=== PATIENT | female | born 2005 | race Caucasian/White ===

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

== ENCOUNTER → 2023-01-13 | Outpatient (CLI) | payer OTHER, SELFPAY ==
--- NOTE | 2023-01-13 11:37 | US_ITS ---
STUDY: RENAL ULTRASOUND - COMPLETE REASON FOR EXAM: Female, 17 years old. POLYCYSTIC KD TECHNIQUE: Ultrasound evaluation of the kidneys was performed with real-time and static harris-scale imaging. COMPARISON: CT May 22, 2021 FINDINGS: RIGHT KIDNEY: Normal location of the right kidney, which is normal in size. The right kidney measures 11.4 cm. There is a normal cortex of the right kidney. The renal cortex measures 2.1 cm. There are multiple, greater than 5 cysts measuring up to 1.5 cm. There are multiple, greater than 3, echogenic foci suggesting stones measuring up to 0.4 cm. There is no right hydronephrosis. DISTAL RIGHT URETER: There is non-visualization of the distal right ureter. There is no demonstrated right ureterovesical junction calculus. There is no demonstrated right ureteral jet. LEFT KIDNEY: Normal location of the left kidney, which is normal in size. The left kidney measures 11.4 cm. There is a normal cortex of the left kidney. The renal cortex measures 1.4 cm. There are multiple, greater than 5 cysts measuring up to 1.7 cm. There are multiple, greater than 3, echogenic foci suggesting stones measuring up to 0.3 cm. There is no left hydronephrosis. DISTAL LEFT URETER: There is non-visualization of the distal left ureter. There is no demonstrated left ureterovesical junction calculus. There is no demonstrated left ureteral jet. BLADDER: The distended urinary bladder has a volume of 480 ml. There is a normal wall thickness of the distended urinary bladder. There is no demonstrated mass within the urinary bladder. There are no demonstrated bladder calculi. US/Kidney and Bladder IMPRESSION: Polycystic kidneys. Bilateral renal stones. No hydronephrosis. Electronically Signed: Celso Alberts MD at 23:54 EDT ,
== END | disposition home or self-care (01) ==
LOC: US 11:36
PROVIDERS: PCP Pediatrics; Referring Provider Internal Medicine Nephrology; Visit Provider Internal Medicine Nephrology
DX: Q61.2 Polycystic kidney, adult type (principal)
CPT/HCPCS: 76770

== ENCOUNTER → 2023-02-02 | Outpatient (CLI) | payer OTHER, SELFPAY ==
--- NOTE | 2023-02-02 11:57 | RAD_ITS ---
INDICATION: ACUTE BRONCHITIS EXAMINATION/TECHNIQUE: X-RAY - XR Chest 2 Views COMPARISON: 08/28/2022 FINDINGS: LINES/DEVICES: None. LUNGS: No consolidation. No pneumothorax. MEDIASTINUM: Unremarkable. CARDIAC SILHOUETTE: Not enlarged. BONES AND SOFT TISSUES: No acute abnormalities. RAD/Chest PA and Lateral IMPRESSION: No evidence of active intrathoracic disease. Electronically Signed: Danette Alex MD at 18:54 EDT ,
== END | disposition home or self-care (01) ==
LOC: MTRAD 11:56
PROVIDERS: PCP Family Medicine; Referring Provider Family Medicine; Visit Provider Family Medicine
DX: J20.9 Acute bronchitis, unspecified (principal)
CPT/HCPCS: 71046

== ENCOUNTER → 2023-02-16 | Outpatient (CLI) | payer OTHER, SELFPAY ==
[2023-02-16 13:38] LABS: Hematocrit 41.5 % (37-47); Hemoglobin 13.2 g/dL (12.0-15.0); Mean Corp Hgb Conc 31.8 g/dL (32-36); Mean Corpuscular Hgb 27.8 pg (27.0-32.0); Mean Corpuscular Volume 87.4 fL (81-99); Mean Platelet Vol. 12.2 fl (6.2-12.0); Platelet Count 382 K/mm3 (150-450); RBC Distribution Width SD 45.1 fl (35.1-43.9); Red Blood Count 4.75 M/mm3 (4.2-5.4); White Blood Count 4.6 K/mm3 (4.4-11.0)
[2023-02-16 14:00] LABS: ALB/GLOB Ratio 0.9 RATIO (0.9-2.4); AST(SGOT) 20 U/L (15-37); Alanine Aminotransfer ALT/SGPT 26 U/L (13-56); Albumin, Serum 3.8 g/dL (3.2-5.0); Alkaline Phosphatase 64 U/L (45-117); Anion Gap 6 (5-15); BUN 9 mg/dL (7-18); BUN/Creat Ratio 14.4 RATIO (10-20); Calcium,Total 9.2 mg/dL (8.5-10.1); Chloride 102 mmol/L (98-107); Creatinine, Serum 0.63 mg/dL (0.55-1.02); EST Glomerular Filtration Rate 129 mL/min (>60); Est Glom Filt Rate - Afr Amer 156 mL/min (>60); Globulin 4.1 g/dL (2.2-4.2); Glucose 69 mg/dL (74-106); Potassium 4.2 mmol/L (3.5-5.1); Protein, Total 7.9 g/dL (6.4-8.2); Sodium Level 137 mmol/L (136-145)
== END | disposition home or self-care (01) ==
LOC: POLAB3 08:52
PROVIDERS: PCP Family Medicine; Visit Provider Internal Medicine Nephrology
DX: Q61.2 Polycystic kidney, adult type (principal)
CPT/HCPCS: 36415; 80053; 85027

== ENCOUNTER → 2023-05-16 | Outpatient (CLI) | payer OTHER, SELFPAY ==
[2023-05-16 17:34] LABS: Absolute Lymphocyte Count 1.26 X10^3/uL (0.83-4.51); Absolute Neutrophil Count 3.3 X10^3/uL (2.0-7.7); Basophil# 0.05 X10^3/uL; Eosinophil# 0.05 X10^3/uL; Hematocrit 40.7 % (37-47); Hemoglobin 12.6 g/dL (12.0-15.0); Lymphocyte # 1.26 X10^3/ul (0.83-4.51); Lymphocyte % 24.1 % (19-41); Mean Corpuscular Hgb 28.1 pg (27.0-32.0); Mean Corpuscular Volume 90.6 fL (81-99); Mean Platelet Vol. 11.7 fl (6.2-12.0); Monocyte# 0.59 X10^3/uL; Monocyte% 11.3 % (0-10); NRBC Flagged by Analyzer 0 % (0-5); Neutrophil # 3.26 X10^3/uL (2.7-7.7); Neutrophil % 62.2 % (47-70); Platelet Count 323 K/mm3 (150-450); RBC Distribution Width CV 13.5 % (11.6-14.6); RBC Distribution Width SD 45.1 fl (35.1-43.9); Red Blood Count 4.49 M/mm3 (4.2-5.4); White Blood Count 5.2 K/mm3 (4.4-11.0)
[2023-05-16 17:39] LABS: International Normalized Ratio 1.1; Prothrombin Time (Protime)PT. 13.8 SECONDS (11.7-14.9)
[2023-05-16 17:40] LABS: Partial Thromboplast Time 34.7 Seconds (24.1-36.2)
[2023-05-16 17:50] LABS: Vitamin B12 600 pg/mL (211-911)
[2023-05-16 17:56] LABS: AST(SGOT) 16 U/L (15-37); Alanine Aminotransfer ALT/SGPT 23 U/L (13-56); Albumin, Serum 3.9 g/dL (3.2-5.0); Alkaline Phosphatase 62 U/L (45-117); Anion Gap 3 (5-15); BUN 9 mg/dL (7-18); BUN/Creat Ratio 14.4 RATIO (10-20); Calcium,Total 9.2 mg/dL (8.5-10.1); Chloride 105 mmol/L (98-107); Creatinine, Serum 0.62 mg/dL (0.55-1.02); EST Glomerular Filtration Rate 130 mL/min (>60); Est Glom Filt Rate - Afr Amer 157 mL/min (>60); Globulin 3.9 g/dL (2.2-4.2); Glucose 95 mg/dL (74-106); Potassium 4.1 mmol/L (3.5-5.1); Protein, Total 7.8 g/dL (6.4-8.2); Sodium Level 137 mmol/L (136-145)
== END | disposition home or self-care (01) ==
LOC: MFPLAB 14:18
PROVIDERS: PCP Family Medicine; Visit Provider Nurse Practitioner Family
DX: T14.8XXA Other injury of unspecified body region, initial encounter (principal)
CPT/HCPCS: 36415; 80053; 82607; 85025; 85610; 85730

== ENCOUNTER → 2023-06-22 | Outpatient (CLI) | payer OTHER, SELFPAY ==
--- NOTE | 2023-06-22 15:41 | RAD_ITS ---
STUDY: X-RAY - ACUTE ABDOMINAL SERIES REASON FOR EXAM: Female, 18 years old. B/L flank pain x 3 weeks with R worse than L TECHNIQUE: Single view of the chest. Supine, and erect view(s) of the abdomen were obtained. COMPARISON: Chest x-ray dated 02/02/2023. FINDINGS: The lungs are clear and expanded. Normal size heart. Normal mediastinum and param. Normal visualized pulmonary arteries. Normal visualized aortic arch and descending thoracic aorta. Moderate to abundant fecal debris within the colon which may indicate mild constipation. Otherwise gas pattern is nonspecific. The soft tissue structures of the abdomen and pelvis are unremarkable. Normal visualized osseous structures. RAD/Acute Abdomen Inc Chest IMPRESSION: No acute cardiopulmonary disease. Possible mild constipation. Electronically Signed: Dorie Fleming MD at 22:08 EST ,
== END | disposition home or self-care (01) ==
LOC: MTRAD 15:39
PROVIDERS: PCP Family Medicine; Referring Provider Family Medicine; Visit Provider Family Medicine
DX: R10.9 Unspecified abdominal pain (principal)
CPT/HCPCS: 74022

== ENCOUNTER → 2023-12-05 | Outpatient (CLI) | payer OTHER, SELFPAY ==
--- NOTE | 2023-12-05 12:53 | US_ITS ---
STUDY: RENAL ULTRASOUND - COMPLETE REASON FOR EXAM: Female, 18 years old. POLYCYSTIC DISEASE TECHNIQUE: Ultrasound evaluation of the kidneys was performed with real-time and static harris-scale imaging. COMPARISON: Comparison is made with prior examination dated January 13, 2023. FINDINGS: RIGHT KIDNEY: Normal location of the right kidney, which is normal in size. The right kidney measures 12.4 cm x 5.3 cm x 4 cm. There is a normal cortex of the right kidney. The renal cortex measures 1.2 cm. Once again, multiple cysts are seen. The largest measures 1 cm x 1 cm x 0.9 cm. There is also evidence of a 2 nonobstructive right intrarenal calculi measuring 4 mm x 3 mm x 4 mm. There is no right hydronephrosis. DISTAL RIGHT URETER: There is non-visualization of the distal right ureter. There is no demonstrated right ureterovesical junction calculus. There is a visualized right ureteral jet. LEFT KIDNEY: Normal location of the left kidney, which is normal in size. The left kidney measures 12 cm x 5.3 cm x 5.6 cm. There is a normal cortex of the left kidney. The renal cortex measures 1.7 cm. Multiple cysts are seen. The largest cyst measures 1.4 cm x 1.5 centimeter by 1.5 cm. Once again, there are 2, nonobstructive intrarenal calculi. The larger calculus measures 5 mm x 3 mm x 3 mm. There is no left hydronephrosis. DISTAL LEFT URETER: There is non-visualization of the distal left ureter. There is no demonstrated left ureterovesical junction calculus. There is a visualized left ureteral jet. BLADDER: The distended urinary bladder has a volume of 890 ml. There is a normal wall thickness of the distended urinary bladder. There is no demonstrated mass within the urinary bladder. There are no demonstrated bladder calculi. US/Kidney and Bladder IMPRESSION: Multiple small bilateral renal cysts. Nonobstructive bilateral intrarenal calculi. There has been essentially no change. Electronically Signed: Claude Champion MD at 14:11 EDT ,
[2023-12-05 14:33] LABS: Albumin, Serum 4.3 g/dL (3.2-5.0); BUN 12 mg/dL (7-18); BUN/Creat Ratio 16.6 RATIO (10-20); Calcium,Total 9.7 mg/dL (8.5-10.1); Chloride 103 mmol/L (98-107); Creatinine, Serum 0.72 mg/dL (0.55-1.02); EST Glomerular Filtration Rate 109 mL/min (>60); Est Glom Filt Rate - Afr Amer 132 mL/min (>60); Glucose 94 mg/dL (74-106); Phosphorus 3.8 mg/dL (2.5-4.9); Potassium 4.4 mmol/L (3.5-5.1); Sodium Level 137 mmol/L (136-145)
== END | disposition home or self-care (01) ==
LOC: US 12:52
PROVIDERS: PCP Family Medicine; Referring Provider Internal Medicine Nephrology; Visit Provider Internal Medicine Nephrology
DX: Q61.2 Polycystic kidney, adult type (principal)
CPT/HCPCS: 36415; 76770; 80069

== ENCOUNTER → 2024-06-25 | Outpatient (CLI) | payer OTHER, SELFPAY ==
--- NOTE | 2024-06-25 15:44 | US_ITS ---
STUDY: ULTRASOUND OF THE FEMALE PELVIS - COMPLETE REASON FOR EXAM: Female, 19 years old. 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 COMPARISON: None. FINDINGS: The uterus is retroverted and is in a midline position. The uterus measures 7.4 x 5.0 x 3.6 cm. Normal uterine cervix. The endometrium measures 10 mm in thickness, and is hyperechoic. There is no demonstrated endometrial mass. There is no demonstrated myometrial mass. I.U.D. - The patient does not have an I.U.D. The right ovary is visualized. The right ovary measures 4.2 x 2.2 x 2.0 cm. There is no right ovarian cyst or ovarian mass. There is no visualized right adnexal mass or complex lesion. There is normal arterial and normal venous vascularity. The left ovary is visualized. The left ovary measures 4.7 x 2.6 x 1.8 cm. There is no left ovarian cyst or ovarian mass. There is no visualized left adnexal mass or complex lesion. There is normal arterial and normal venous vascularity. There is minimal fluid in the cul-de-sac. The pre void volume of the bladder was 229 ml. The post void volume of the bladder was ml. Polycystic ovary disease: No. US/Pelvic w/ Transvaginal IMPRESSION: Normal female pelvis. Electronically Signed: Chris Barbosa MD at 9:43 EST ,
[2024-06-25 17:10] LABS: Absolute Lymphocyte Count 2.02 X10^3/uL (0.83-4.51); Absolute Neutrophil Count 2.1 X10^3/uL (2.0-7.7); Basophil# 0.06 X10^3/uL; Basophil% 1.3 % (0-1); Eosinophil# 0.06 X10^3/uL; Eosinophils% 1.3 % (0-5); Hematocrit 37.4 % (37-47); Hemoglobin 12.3 g/dL (12.0-15.0); Lymphocyte # 2.02 X10^3/ul (0.83-4.51); Mean Corp Hgb Conc 32.9 g/dL (32-36); Mean Corpuscular Hgb 28.7 pg (27.0-32.0); Mean Corpuscular Volume 87.2 fL (81-99); Mean Platelet Vol. 9.8 fl (6.2-12.0); Monocyte# 0.25 X10^3/uL; Monocyte% 5.6 % (0-10); NRBC Flagged by Analyzer 0 % (0-5); Neutrophil # 2.09 X10^3/uL (2.7-7.7); Neutrophil % 46.6 % (47-70); Platelet Count 293 K/mm3 (150-450); RBC Distribution Width CV 13.2 % (11.6-14.6); RBC Distribution Width SD 41.9 fl (35.1-43.9); Red Blood Count 4.29 M/mm3 (4.2-5.4); White Blood Count 4.5 K/mm3 (4.4-11.0)
[2024-06-25 17:31] LABS: ALB/GLOB Ratio 1.3 RATIO (0.9-2.4); AST(SGOT) 13 U/L (15-37); Alanine Aminotransfer ALT/SGPT 16 U/L (13-56); Albumin, Serum 4.1 g/dL (3.2-5.0); Alkaline Phosphatase 47 U/L (45-117); Anion Gap 3 (5-15); BUN 11 mg/dL (7-18); BUN/Creat Ratio 16.2 RATIO (10-20); Chloride 106 mmol/L (98-107); Creatinine, Serum 0.68 mg/dL (0.55-1.02); EST Glomerular Filtration Rate 116 mL/min (>60); Est Glom Filt Rate - Afr Amer 141 mL/min (>60); Globulin 3.2 g/dL (2.2-4.2); Glucose 96 mg/dL (74-106); Potassium 4.2 mmol/L (3.5-5.1); Protein, Total 7.3 g/dL (6.4-8.2); Sodium Level 137 mmol/L (136-145); hCG Titer Quant., Serum < 1 mIU/mL (1-3)
== END | disposition home or self-care (01) ==
PROVIDERS: PCP Family Medicine; Referring Provider Family Medicine; Visit Provider Family Medicine
DX: R10.30 Lower abdominal pain, unspecified (principal); Q61.2 Polycystic kidney, adult type
CPT/HCPCS: 76830; 76856; 80053; 84702; 85025

== ENCOUNTER → 2024-06-26 | Outpatient (CLI) | payer OTHER, SELFPAY ==
--- NOTE | 2024-06-26 11:57 | CT_ITS ---
STUDY: CT ABDOMEN AND PELVIS WITH CONTRAST - URINARY TRACT REASON FOR EXAM: Female, 19 years old. PYELONEPHRITIS RADIATION DOSAGE (If Supplied By Facility): CTDIvol = ( 9.34 ) mGy, DLP = ( 274.50 ) mGycm TECHNIQUE: IV 80mL Isovue-300 was administered. Transaxial images were obtained from the dome of the diaphragm to the symphysis pubis subsequent to intravenous contrast administration. Multiplanar coronal and sagittal images were reformatted. The protocol utilizes one or more of the following dose reduction techniques: automated exposure control, adjustment of mA and/or kV according to patient size,and/or use of iterative reconstruction technique. COMPARISON: May 22, 2021 and Ultrasound of the kidneys dated December 05, 2023 FINDINGS: The visualized lung bases are unremarkable. The visualized portions of the heart are within normal limits. There is a pectus excavatum deformity. Within segment 6 of the liver there is a 2.8 x 1.8 cm enhancing round focus that was not apparent on the prior examination. Normal gallbladder and extrahepatic biliary system. Normal spleen. Normal pancreas. Normal bilateral adrenal glands. Normal visualized stomach. Normal small intestine. Normal colon. The appendix is visualized and appears normal. Normal abdominal aorta. No retroperitoneal adenopathy. There are multiple bilateral renal cysts again visualized. There is no hydronephrosis. Normal urinary bladder. There is minimal free fluid present within the pelvis which may be physiologic. Normal abdominal wall. Normal osseous structures. CT/Abdomen/Pelvis WITH Contrast IMPRESSION: Indeterminant 2.8 x 1.8 cm enhancing focus within the right hepatic lobe, may reflect a hemangioma or possible focal nodular hyperplasia, recommend an MRI with contrast for further characterization. Bilateral renal cysts consistent with a history of polycystic kidney disease. Electronically Signed: Do Torres MD at 13:17 EST ,
== END | disposition home or self-care (01) ==
LOC: CT 11:48
PROVIDERS: PCP Family Medicine; Referring Provider Family Medicine; Visit Provider Family Medicine
DX: N12 Tubulo-interstitial nephritis, not specified as acute or chronic (principal)
CPT/HCPCS: 74177; 87086; Q9967

== ENCOUNTER → 2024-06-27 | Outpatient (CLI) | payer OTHER, SELFPAY ==
[2024-06-27 17:44] LABS: Absolute Lymphocyte Count 1.88 X10^3/uL (0.83-4.51); Basophil# 0.05 X10^3/uL; Basophil% 0.8 % (0-1); Eosinophil# 0.08 X10^3/uL; Eosinophils% 1.2 % (0-5); Hemoglobin 13.2 g/dL (12.0-15.0); Lymphocyte # 1.88 X10^3/ul (0.83-4.51); Lymphocyte % 29.2 % (19-41); Mean Corp Hgb Conc 32.2 g/dL (32-36); Mean Corpuscular Hgb 28.6 pg (27.0-32.0); Mean Corpuscular Volume 88.9 fL (81-99); Mean Platelet Vol. 11.1 fl (6.2-12.0); Monocyte% 6.2 % (0-10); NRBC Flagged by Analyzer 0 % (0-5); Neutrophil % 62.3 % (47-70); Platelet Count 336 K/mm3 (150-450); RBC Distribution Width CV 13.3 % (11.6-14.6); RBC Distribution Width SD 43.5 fl (35.1-43.9); Red Blood Count 4.61 M/mm3 (4.2-5.4); White Blood Count 6.4 K/mm3 (4.4-11.0)
[2024-06-27 18:08] LABS: ALB/GLOB Ratio 1.2 RATIO (0.9-2.4); AST(SGOT) 17 U/L (15-37); Alanine Aminotransfer ALT/SGPT 18 U/L (13-56); Albumin, Serum 4.2 g/dL (3.2-5.0); Alkaline Phosphatase 53 U/L (45-117); Anion Gap 6 (5-15); BUN 9 mg/dL (7-18); BUN/Creat Ratio 13.6 RATIO (10-20); Calcium,Total 9.2 mg/dL (8.5-10.1); Chloride 104 mmol/L (98-107); Creatinine, Serum 0.66 mg/dL (0.55-1.02); EST Glomerular Filtration Rate 120 mL/min (>60); Est Glom Filt Rate - Afr Amer 145 mL/min (>60); Globulin 3.6 g/dL (2.2-4.2); Glucose 82 mg/dL (74-106); Protein, Total 7.8 g/dL (6.4-8.2); Sodium Level 138 mmol/L (136-145)
== END | disposition home or self-care (01) ==
LOC: MFPLAB 14:24
PROVIDERS: PCP Family Medicine; Referring Provider Family Medicine; Visit Provider Family Medicine
DX: R10.9 Unspecified abdominal pain (principal)
CPT/HCPCS: 36415; 80053; 85025

== ENCOUNTER → 2024-07-31 | Outpatient (CLI) | payer OTHER, SELFPAY ==
--- NOTE | 2024-07-31 16:24 | MRI_ITS ---
EXAM: MR ABDOMEN WITHOUT INTRAVENOUS CONTRAST, MRCP PROTOCOL CLINICAL INDICATION: abd pain TECHNIQUE: Multiplanar and multisequence MR images of the abdomen without intravenous contrast obtained with MRCP sequence. Three-dimensional post-processing reconstructions were performed. COMPARISON: CT abdomen and pelvis 06/25/2024 FINDINGS: LOWER THORAX: Normal. No pleural effusion. LIVER: Stable size of the 3 cm lesion arising from the inferior aspect of hepatic segment 6. Lesion demonstrates isointensity with the adjacent normal liver on T1 and T2 imaging which is more characteristic of focal nodular hyperplasia than a hemangioma. Further delineation with dynamic contrast enhancement with hepatobiliary contrast agent would be helpful. Stable 8 mm lesion within hepatic segment 6 corresponding to the cyst noted on CT. GALLBLADDER AND BILE DUCTS: Normal-appearing gallbladder and biliary tree. PANCREAS: Normal. No focal cystic mass. No pancreatic duct dilation. SPLEEN: Normal. Non-enlarged. ADRENALS: Normal. No nodules. KIDNEYS AND URETERS: Multiple bilateral renal cysts are again seen measuring 14 mm in maximum size and smaller. Normal renal size and position. No hydronephrosis. INTRAPERITONEAL SPACE: Normal. No ascites or other fluid collection. VASCULATURE: Normal. Abdominal aorta is non-dilated. LYMPH NODES: No enlarged lymph nodes. MRI/MRCP Abdomen without Contrast IMPRESSION: 1. 3 cm lesion of hepatic segment 6 likely focal nodular hyperplasia. Follow-up dynamic MR scan with hepatobiliary contrast recommended. 2. Bilateral multicystic/polycystic renal disease. Electronically Signed: Don Glass MD at 17:11 EST ,
== END | disposition home or self-care (01) ==
PROVIDERS: PCP Family Medicine; Referring Provider Family Medicine; Visit Provider Family Medicine
DX: R10.30 Lower abdominal pain, unspecified (principal); R16.0 Hepatomegaly, not elsewhere classified
CPT/HCPCS: 74181

== ENCOUNTER → 2024-09-17 | Outpatient (CLI) | payer OTHER, SELFPAY ==
--- NOTE | 2024-09-17 10:42 | NM_ITS ---
EXAM: GASTRIC EMPTYING STUDY CLINICAL HISTORY: Nausea and vomiting. 15 lb weight loss. COMPARISON: None. TECHNIQUE: 1.2 mCi of technetium labeled sulfur colloid was ingested with oatmeal. FINDINGS: 50% of the ingested radiopharmaceutical exits the stomach in 53 minutes. This is within normal limits. NM/Gastric Emptying Study IMPRESSION: Unremarkable gastric emptying examination. Reading Location: [id number]
== END | disposition home or self-care (01) ==
LOC: NM 10:40
PROVIDERS: PCP Family Medicine; Referring Provider Internal Medicine Gastroenterology; Visit Provider Internal Medicine Gastroenterology
DX: R11.2 Nausea with vomiting, unspecified (principal)
CPT/HCPCS: 78264; A9541

== ENCOUNTER 2024-10-30 13:19 | Day surgery (SDC) | payer OTHER, SELFPAY ==
--- NOTE | 2024-10-25 14:31 | PAT.ANESEVAL ---
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 When Was Last Pacemaker Check QUESTION #4 FULL TEXT: You/Your Family Experience fever (hyperthermia) with Anesthesia Last Oral Intake Last Oral intake: Last Oral Intake NPO since Meds taken in AM with sips of water? 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 Female Yes 10/25/24 09:06 HX of Motion Sickness No 10/25/24 09:06 HX of N/V After Surgery No 10/25/24 09:06 Non-Smoker Yes 10/25/24 09:06 Duration of Surgery greater No 10/25/24 09:06 than 60 minutes Number of Risk Factors 2 10/25/24 09:06 PONV Score Moderate Risk 10/25/24 09:06 Height & Weight Height & Weight: Anesthesia: Height & Weight Height 5 ft 3 in 08/28/22 09:15 Respiratory Assessment Respiratory Assessment - plastics sheet finishing press operator: Respiratory Tract Infection Hx - plastics sheet finishing press operator Hx Respiratory Tract Infection No 10/25/24 09:06 STOP Sleep Apnea STOP Sleep Apnea - plastics sheet finishing press operator: STOP Sleep Apnea - plastics sheet finishing press operator Hx Hypertension No 10/25/24 09:06 Hx Sleep Apnea No 10/25/24 09:06 CPAP BIPAP Do you snore loudly (louder No 10/25/24 09:06 than talking or can be heard Do you often feel tired/ No 10/25/24 09:06 fatigued/ sleepy during daytime? Has anyone observed you stop No 10/25/24 09:06 breathing during sleep? STOP Results Negative 10/25/24 09:06 QUESTION #5 FULL TEXT : Do you snore loudly (louder than talking or can be heard through closed doors)? 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 Specify any problems Hx of Preganancy in last 3 No 10/25/24 09:06 Months Nurse Filling Out Transfusion VLEHMAN 10/25/24 09:06 & Questions: Date: 10/25/24 10/25/24 09:06 Time: 09:13 10/25/24 09:06 Patient unable to answer at this time (ie. 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: /Reproductive Hx- plastics sheet finishing press operator Hx Now No 10/25/24 09:06 Gestational Age (in weeks): EDC: Hx Hx Para Hx Section SAB No 10/25/24 09:06 PFS Medical History (Updated 10/25/24 @ 09:27 by Mica Carr) Cardiology follow-up encounter Wears contact lenses Wears glasses Loss of consciousness Gastric reflux History of echocardiogram Liver mass Pyelonephritis Polycystic kidney, adult type Depression Anorexia PKD (polycystic kidney disease) Home Medications ?Medication ?Instructions ?Recorded ?Last Taken ?Type sertraline 50 mg tablet (Zoloft) 50 mg PO QDAY 08/16/24 Unknown History scopolamine base 1 mg over 3 days 1 patch transdermal Q3D PRN nausea 09/20/24 Unknown Rx transdermal patch and vomiting #10 ea metoclopramide HCl 5 mg tablet 5 mg PO BID #60 tabs 10/19/24 Unknown Rx Allergy/AdvReac Type Severity Reaction Status Date / Time amoxicillin (From Augmentin) Allergy Rash Verified 08/16/24 11:17 clavulanic acid (From Allergy Rash Verified 08/28/22 09:07 Augmentin) Sulfa (Sulfonamide Allergy Rash Verified 08/16/24 11:17 Antibiotics) lactose AdvReac Unknown other Verified 08/16/24 11:17 Family History (Updated 08/16/24 @ 11:23 by Darleen Ruvalcaba) Father Hypertension Kidney disease Grandfather Cancer Heart disease Grandmother Cancer Grandfather Kidney disease Social History (Updated 08/16/24 @ 11:19 by Darleen Ruvalcaba) household members: family Smoking Status: Never smoker alcohol intake: never Audit: Pertinent Findings Pertinent Findings EKG Perinent findings: May 22, 2021. Normal sinus rhythm. February 03, 2022. Sinus rhythm Echo (EF%) pertinent findings: February 03, 2022. Normal cardiac anatomy. Normal left and right ventricular size and function. Consult pertinent findings: February 03, 2022. Dr. Richardson (pediatric cardiology). 1. Dysautonomia-patient's symptoms of elevated heart rate with position change and exertion and associated dizziness are likely within the spectrum of dysautonomia. Increase hydration is recommended at this time. 2. Elevated blood pressure-EKG and echo done today were benign. Continue blood pressure monitoring by nephrology is recommended. Avoid caffeine drinks. No activity restrictions from cardiovascular perspective. Recommendation Anesthesia Recommendation Anesthesia recommendation: OPTIMIZED for anesthesia
[2024-10-29 10:22] LABS: Erythrocyte Sedimentation Rate < 1 mm/hr (0-30)
[2024-10-29 11:09] LABS: CRP < 3.00 mg/L (0.0-3.0)
[2024-10-30] VITALS (8 sets, daily range): BP systolic 115–124; BP diastolic 71–77; PULSE 57–74; RESP 14–16; TEMP 36.3–36.5; O2SAT 100; BMI 18.6
[2024-10-30 13:49] LABS: Internal QC Validated? YES +Cl - CLEAR BKGD; Pregnancy, Urine Negative Negative; Record Kit Lot#,Urine Preg 899023
--- NOTE | 2024-10-30 14:11 | PCM.PRE.AN2 ---
ASA Classification* ASA Classification ASA Classification: 2 Assessment & Plan Anesthesia* Anesthesia Assessment Anesthesia Assessment: Discussed sedation and/or anesthesia options, risks, benefits, and alternatives with patient/parents/legal guardian/POA. Questions invited. The patient/parents/legal guardian/POA seems to understand and agrees to proceed with anesthesia plan. Reviewed the physical assessment, medical history, allergy history and patient home medications list prior to surgery/procedure/anesthetic and documented any changes. Performed airway and anesthesia risk assessments. Anesthesia Type Anesthesia Type: MAC History Source History Obtained from:: Patient and Chart Anesthesia Focused Assessment* Temperature: 97.6 F Pulse Rate: 57 Blood Pressure: 124/75 Respiratory Rate: 14 Pulse Ox: 100 Oxygen Delivery Method: Room Air Airway Assessment Mouth opens: >3 cm Mallampati Score: I Teeth Condition: Intact Neck Range of motion (ROM): Full ROM Focused Labs Anesthesia Preop lab: CBC WBC 6.4 K/mm3 (4.4-11.0) 06/27/24 14:25 06/27/24 RBC 4.61 M/mm3 (4.2-5.4) 06/27/24 14:25 06/27/24 Hgb 13.2 g/dL (12.0-15.0) 06/27/24 14:25 06/27/24 Hct 41.0 % (37-47) 06/27/24 14:25 06/27/24 Plt Count 336 K/mm3 (150-450) 06/27/24 14:25 06/27/24 CHEMISTRY Potassium 4.0 mmol/L (3.5-5.1) 06/27/24 14:25 06/27/24 Sodium 138 mmol/L (136-145) 06/27/24 14:25 06/27/24 Phosphorus 3.8 mg/dL (2.5-4.9) 12/05/23 13:54 12/05/23 BUN 9 mg/dL (7-18) 06/27/24 14:25 06/27/24 Creatinine 0.66 mg/dL (0.55-1.02) 06/27/24 14:25 06/27/24 Glucose 82 mg/dL (74-106) 06/27/24 14:25 06/27/24 TSH 1.210 uIU/mL (0.300-4.200) 10/29/24 09:40 10/29/24 COAG PT 13.8 SECONDS (11.7-14.9) 05/16/23 14:18 05/16/23 HCG, Quant < 1 mIU/mL (1-3) 06/25/24 16:31 06/25/24 Urine Test Negative Negative 10/30/24 13:37 10/30/24 Pre-Assessment Diagnosis/Proposed Procedure Planned Operative Procedure(s): EGD Anesthesia History Anesthesia History - sequins stringer: Anesthesia History - sequins stringer Hx Hospitalization No 10/25/24 09:06 Any Problems With Anesthesia No 10/25/24 09:06 Cholinesterase deficiency No 10/25/24 09:06 You/Your Family Experience No 10/25/24 09:06 fever (hyperthermia) with Relationship Recent Exposure to Contagious No 10/30/24 13:44 Disease Does patient have nerve No 10/25/24 09:06 stimulator Patient instructed to have device shut off --Does patient have Pacemaker No 10/30/24 13:44 or ICD? When Was Last Pacemaker Check QUESTION #4 FULL TEXT: You/Your Family Experience fever (hyperthermia) with Anesthesia Last Oral Intake Last Oral intake: Last Oral Intake NPO since 08:30 10/30/24 13:44 Meds taken in AM with sips of water? Meds patient instructed to take am of surgery Any additional information?: Yes Meds taken in AM with sips of water?: Yes PONV PONV - sequins stringer: PONV - sequins stringer Female Yes 10/25/24 09:06 HX of Motion Sickness No 10/25/24 09:06 HX of N/V After Surgery No 10/25/24 09:06 Non-Smoker Yes 10/25/24 09:06 Duration of Surgery greater No 10/25/24 09:06 than 60 minutes Number of Risk Factors 2 10/25/24 09:06 PONV Score Moderate Risk 10/25/24 09:06 Height & Weight Height & Weight: Anesthesia: Height & Weight Height 5 ft 3 in 10/30/24 13:44 Weight: 47.6 kg 10/30/24 13:44 Body Mass Index (BMI) 18.6 10/30/24 13:44 Respiratory Assessment Respiratory Assessment - sequins stringer: Respiratory Tract Infection Hx - sequins stringer Hx Respiratory Tract Infection No 10/25/24 09:06 STOP Sleep Apnea STOP Sleep Apnea - sequins stringer: STOP Sleep Apnea - sequins stringer Hx Hypertension No 10/25/24 09:06 Hx Sleep Apnea No 10/25/24 09:06 CPAP BIPAP Do you snore loudly (louder No 10/25/24 09:06 than talking or can be heard Do you often feel tired/ No 10/25/24 09:06 fatigued/ sleepy during daytime? Has anyone observed you stop No 10/25/24 09:06 breathing during sleep? STOP Results Negative 10/25/24 09:06 QUESTION #5 FULL TEXT : Do you snore loudly (louder than talking or can be heard through closed doors)? 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 Specify any problems Hx of Preganancy in last 3 No 10/25/24 09:06 Months Nurse Filling Out Transfusion VLEHDIANA 10/25/24 09:06 & Questions: Date: 10/25/24 10/25/24 09:06 Time: 09:13 10/25/24 09:06 Patient unable to answer at this time (ie. confused, unrespo /Reproduction History /Reproductive History - sequins stringer: /Reproductive Hx- sequins stringer Hx Now No 10/25/24 09:06 Gestational Age (in weeks): EDC: Hx Hx Para Hx Section SAB No 10/25/24 09:06 PFSH Medical History Cardiology follow-up encounter Wears contact lenses Wears glasses Loss of consciousness Gastric reflux History of echocardiogram Liver mass Pyelonephritis Polycystic kidney, adult type Depression Anorexia PKD (polycystic kidney disease) Home Medications ?Medication ?Instructions ?Recorded ?Last Taken ?Type sertraline 50 mg tablet (Zoloft) 50 mg PO QDAY 08/16/24 10/30/24 08:30 History scopolamine base 1 mg over 3 days 1 patch transdermal Q3D PRN nausea 09/20/24 Unknown Rx transdermal patch and vomiting #10 ea metoclopramide HCl 5 mg tablet 5 mg PO BID #60 tabs 10/19/24 Unknown Rx prochlorperazine maleate 5 mg 5 mg PO TID PRN PRN nausea/vomiting 10/30/24 10/30/24 08:30 History tablet Allergy/AdvReac Type Severity Reaction Status Date / Time amoxicillin (From Augmentin) Allergy Rash Verified 10/30/24 13:43 clavulanic acid (From Allergy Rash Verified 10/30/24 13:43 Augmentin) Sulfa (Sulfonamide Allergy Rash Verified 10/30/24 13:43 Antibiotics) lactose AdvReac Unknown other Verified 10/30/24 13:43 Family History Father Hypertension Kidney disease Grandfather Cancer Heart disease Grandmother Cancer Grandfather Kidney disease Surgical History (Updated 10/30/24 @ 14:[address] Miko Shaw MD) Normal colonoscopy H/O esophagogastroduodenoscopy Social History household members: family Smoking Status: Never smoker alcohol intake: never Review of Systems (Anesthesia) ROS Narrative System reviewed and no additional complaints, except as documented.
--- NOTE | 2024-10-30 14:45 | EGD_PTH ---
PATIENT: PATRICIA HARDY LOC: EN U#:[id number] AGE/SX: 19/F ROOM: RE10/30/[address]: Dr. Paulino Weaver DO : 2005 BED: DIS: 10/30/2024 SPEC #: [id number] RECD: 10/31/24 11:06 STATUS: IKRBY RERogerio #: [id number] TANNA: 10/30/24 14:[address]: Paulino Weaver DEPT: SURGICAL PATHOLOGY RECD BY: Onofre Garcia ENTERED: 10/31/24 11:06 SP TYPE: EGD BIOPSY PAULA DR: Dr. Cortez Rogers MD Tissues: A - Duodenum, NOS B - Gastric mucous membrane C - Esophagus, NOS Procedures: Immunohistochemical Stains Surgery Specimen Level IV HEADER OPERATION: EGD biopsy PRE-OP DIAGNOSIS: Nausea/vomiting, anorexia, depression TISSUE SUBMITTED: A- Duodenum biopsy, B- Gastric body biopsy, C- Random esophagus biopsy MICROSCOPIC DIAGNOSIS A. Small Bowel, Duodenum, Biopsy: - Normal villous architecture. - Negative for increased intraepithelial lymphocytes. B. Stomach, Body, Biopsy: - Oxyntic and antral mucosa with mild chronic inflammation. - Negative for Helicobacter-like organisms (H&E). C. Esophagus, Random, Biopsy: - Squamous mucosa negative for eosinophils. MICROSCOPIC DESCRIPTION Slides are reviewed. GROSS DESCRIPTION A. Received in formalin in a container labeled with the patient's name, date of , and duodenum biopsy are multiple betancourt-pink fragments of mucosal tissue measuring 1.0 x 0.8 x 0.2 cm in aggregate. Submitted in toto in A1. B. Received in formalin in a container labeled with the patient's name, date of , and gastric body biopsy are 2 betancourt-pink fragments of mucosal tissue, each measuring 0.4 x 0.3 x 0.2 cm. Submitted in toto in B1. C. Received in formalin in a container labeled with the patient's name, date of , and random esophagus biopsy are multiple betancourt-pink fragments of mucosal tissue measuring 0.6 x 0.5 x 0.2 cm in aggregate. Submitted in toto in C1. SB 10/31/2024 CPT:[id number],67516
--- NOTE | 2024-10-30 14:57 | PCM.HP.STD ---
HPI - General General Date of Admission: 10/30/24 Date of Service: 10/30/24 Chief Complaint: abdominal pain HPI Narrative PATRICIA HARDY, is a 19 F who presents PATRICIA HARDY is a 19 F who presents to the office today for initial consult. MRCP 07.31.24 1.3 cm lesion of hepatic segment 6 likely focal nodular hyperplasia. Follow-up dynamic MR scan with hepatobiliary contrast recommended. 2.Bilateral multicystic/polycystic renal disease. *BGI established 08.29.24 pt reports that she was referred for a lesion that was seen on her liver. pt reports constant nausea; worse after eating. Pt reports back/flank pain worse after eating as well. Pt reports bloating only above her bellybutton up to her ribs. Pt states that she is having a bm once every other day; reports she used to have a daily bm. Pt reports that she is going to [place] in a few weeks and is hoping to have her symptoms under control prior to her trip. Gastric Emptying Study Today R11.2 - Nausea with vomiting, unspecified PFSH Medical History Cardiology follow-up encounter Wears contact lenses Wears glasses Loss of consciousness Gastric reflux History of echocardiogram Liver mass Pyelonephritis Polycystic kidney, adult type Depression Anorexia PKD (polycystic kidney disease) Home Medications ?Medication ?Instructions ?Recorded ?Last Taken ?Type sertraline 50 mg tablet (Zoloft) 50 mg PO QDAY 08/16/24 10/30/24 08:30 History scopolamine base 1 mg over 3 days 1 patch transdermal Q3D PRN nausea 09/20/24 Unknown Rx transdermal patch and vomiting #10 ea metoclopramide HCl 5 mg tablet 5 mg PO BID #60 tabs 10/19/24 Unknown Rx prochlorperazine maleate 5 mg 5 mg PO TID PRN PRN nausea/vomiting 10/30/24 10/30/24 08:30 History tablet Allergy/AdvReac Type Severity Reaction Status Date / Time amoxicillin (From Augmentin) Allergy Rash Verified 10/30/24 13:43 clavulanic acid (From Allergy Rash Verified 10/30/24 13:43 Augmentin) Sulfa (Sulfonamide Allergy Rash Verified 10/30/24 13:43 Antibiotics) lactose AdvReac Unknown other Verified 10/30/24 13:43 Family History Father Hypertension Kidney disease Grandfather Cancer Heart disease Grandmother Cancer Grandfather Kidney disease Surgical History Normal colonoscopy H/O esophagogastroduodenoscopy Social History household members: family Smoking Status: Never smoker alcohol intake: never ROS Constitutional Constitutional: Denies fatigue, fever(s), poor appetite, weight gain or weight loss Gastrointestinal Gastrointestinal: Denies belching, bloating, change in bowel habits, change in stool character, chewing difficulty, coffee ground emesis, constipation, cramping, diarrhea, dyspepsia, dysphagia, early satiety, excessive flatus, fecal incontinence, heartburn, hematemesis, hematochezia, hemorrhoids, loose stools, melena, nausea, odynophagia, rectal bleeding, tenesmus, vomiting or weight changes Vital Signs Vital Signs Vital Signs: 10/30/24 13:44 10/30/24 13:44 10/30/24 14:18 Temperature 97.6 F L 97.6 F L Temperature Source Temporal Pulse Rate 57 L 57 L Respiratory Rate 14 14 Respiratory Pattern Normal Blood Pressure 124/75 H 124/75 H Blood Pressure Mean 91 Blood Pressure Source Monitor Blood Pressure Position Semi-Fowlers Blood Pressure Location Left Arm Pulse Ox 100 100 Oxygen Delivery Method Room Air Room Air Weight Weight: 104 lb 15.04 oz Body Mass Index (BMI) 18.6 Physical Exam Const alert, oriented x3, no apparent distress and healthy appearing General Appearance: cooperative GI normal to inspection, nondistended, normoactive bowel sounds, soft to palpation, non-tender and non-distended Percussion: normal to percussion Rectal Exam: deferred Results Lab / Micro Data Labs: Laboratory Results - last 24 hr 10/30/24 13:37: Urine Test Negative Assessment & Plan Assessment/Plan (1) Nausea & vomiting: (2) Anorexia: (3) Depression: PLAN: Assessment and Plan Assessment and Plan (1) Anorexia: Status: Chronic Plan: Patient has a history of anorexia nervosa. I think that contributed to possible gastroparesis. She will undergo gastric emptying study. (2) Focal nodular hyperplasia of liver: Status: Acute Plan: Her images looks like focal nodular hyperplasia. It does not resemble hemangioma. Recommend a triple phase CT scan to evaluate her liver. Orders: Orders
--- NOTE | 2024-10-30 15:28 | OP.CCLET_ITS ---
10/30/2024 Cortez Rogers [address] [place] [address] Re : Upper GI endoscopy procedure for Dora Boyerler Dear Dr. Rogers This procedure was performed on Wednesday, October 30, 2024. My impressions and recommendations are as follows: Impressions : - Normal esophagus. - Erythematous mucosa in the gastric body. Biopsied. - No gross lesions in the third portion of the duodenum. Biopsied. - Biopsies were taken with a cold forceps for evaluation of eosinophilic esophagitis. Recommendations : - Discharge patient to home. - Resume previous diet. - Continue present medications. - Await pathology results. My findings are described in the full procedure note, which is enclosed. If I can be of further assistance, please feel free to contact me at . Sincerely, Paulino Weaver, 10/30/2024 3:28:07 PM This report has been signed electronically.
--- NOTE | 2024-10-30 15:28 | OP.EGD_ITS ---
Patient Name: Dora Hogan Procedure Date: 10/30/2024 3:00 PM Date of : 2005 Age: 19 Procedure: Upper GI endoscopy Indications: Epigastric abdominal pain Providers: Paulino Weaver DO Referring MD: Cortez Rogers Medicines: Monitored Anesthesia Care Patient Profile: This is a 19 year old female. Refer to note in patient chart for documentation of history and physical. Patient has symptoms of chronic epigastric abdominal pain. Complications: No immediate complications. Procedure: Pre-Anesthesia Assessment: - Prior to the procedure, a History and Physical was performed, and patient medications and allergies were reviewed. The patient is competent. The risks and benefits of the procedure and the sedation options and risks were discussed with the patient. All questions were answered and informed consent was obtained. Patient identification and proposed procedure were verified in the pre-procedure area. Mental Status Examination: alert and oriented. Airway Examination: normal oropharyngeal airway and neck mobility. Respiratory Examination: clear to auscultation. CV Examination: normal. Prophylactic Antibiotics: The patient does not require prophylactic antibiotics. Prior Anticoagulants: The patient has taken no anticoagulant or antiplatelet agents. ASA Grade Assessment: II - A patient with mild systemic disease. After reviewing the risks and benefits, the patient was deemed in satisfactory condition to undergo the procedure. The anesthesia plan was to use monitored anesthesia care (MAC). Immediately prior to administration of medications, the patient was re-assessed for adequacy to receive sedatives. The heart rate, respiratory rate, oxygen saturations, blood pressure, adequacy of pulmonary ventilation, and response to care were monitored throughout the procedure. The physical status of the patient was re-assessed after the procedure. After obtaining informed consent, the endoscope was passed under direct vision. Throughout the procedure, the patient's blood pressure, pulse, and oxygen saturations were monitored continuously. The Endoscope was introduced through the mouth, and advanced to the third part of the duodenum. Small bowel enteroscopy was deemed necessary. The upper GI endoscopy was accomplished without difficulty. The patient tolerated the procedure well. Scope In: 3:10:58 PM Scope Out: 3:15:27 PM Total Procedure Duration Time 0 hours 4 minutes 29 seconds Findings: The examined esophagus was normal. Biopsies were obtained from the proximal and distal esophagus with cold forceps for histology of suspected eosinophilic esophagitis. Patchy mildly erythematous mucosa without bleeding was found in the gastric body. Biopsies were taken with a cold forceps for histology. Verification of patient identification for the specimen was done. Estimated blood loss was minimal. Biopsies were taken with a cold forceps for Helicobacter pylori testing. Verification of patient identification for the specimen was done. Estimated blood loss was minimal. No gross lesions were noted in the third portion of the duodenum. Biopsies were taken with a cold forceps for histology. Verification of patient identification for the specimen was done. Estimated blood loss was minimal. Impression: - Normal esophagus. - Erythematous mucosa in the gastric body. Biopsied. - No gross lesions in the third portion of the duodenum. Biopsied. - Biopsies were taken with a cold forceps for evaluation of eosinophilic esophagitis. Recommendation: - Discharge patient to home. - Resume previous diet. - Continue present medications. - Await pathology results. Procedure Code(s): --- Professional --- 83339, Small intestinal endoscopy, enteroscopy beyond second portion of duodenum, not including ileum; with biopsy, single or multiple CPT copyright 2021 [employer]. All rights reserved. The codes documented in this report are preliminary and upon reflesher review may be revised to meet current compliance requirements. Paulino Weaver DO 10/30/2024 3:28:07 PM This report has been signed electronically. Number of Addenda: 0 Note Initiated On: 10/30/2024 3:00 PM
--- NOTE | 2024-10-30 16:59 | PCM.POST.ANE ---
Anesthesia: Postop Eval I Current Vital Signs Temperature: 97.4 F Pulse Rate: 66 Blood Pressure: 116/73 Respiratory Rate: 14 Pulse Ox: 100 Oxygen Delivery Method: Room Air Assessment Airway patent: Yes Spontaneous unlabored respirations: Yes Mental status: Awake and Calm nausea: No Vomiting: No Anesthesia Complication: No Fluid Hydration Crystalloid volume administer (ml): 20 Total IV fluid infused: 20 Progress Note Anesthesia document: Postop Eval 1 completed: Yes
--- NOTE | 2024-10-30 20:06 | POSTOPAN2_ITS ---
Anesthesia Postop Eval I Sum Postop Eval Completion status Anesthesia document: Postop Eval 1 completed: Yes Anesthesia Postop Eval I Summary Anesthesia Postop Eval I Summary: Anesthesia Postop Eval I: Assessment Summary Airway patent Yes 10/30/24 16:59 [email or web address] Spontaneous unlabored Yes 10/30/24 16:59 [email or web address] respirations Mental status Awake,Calm 10/30/24 16:59 [email or web address] nausea No 10/30/24 16:59 [email or web address] Vomiting No 10/30/24 16:59 [email or web address] Anesthesia Postop Eval I: Fluid Summary Crystalloid volume administer 20 10/30/24 16:59 [email or web address] (ml) Colloids volume administered ( ml) Blood Product volume administered (ml) Total IV fluid infused 20 10/30/24 16:59 [email or web address] Anesthesia Postop Eval I: Summary Notes Anesthesia Complication No 10/30/24 16:59 [email or web address] Anesthesia Complication Comment: Post-operative progress note Anesthesia: Postop Eval II Evaluation Mental status: Awake and Calm Pain Level: 0 nausea: No Vomiting: No Complications Anesthesia Complication: No
--- NOTE | 2024-10-30 20:06 | PCM.POSTANE2 ---
Anesthesia Postop Eval I Sum Postop Eval Completion status Anesthesia document: Postop Eval 1 completed: Yes Anesthesia Postop Eval I Summary Anesthesia Postop Eval I Summary: Anesthesia Postop Eval I: Assessment Summary Airway patent Yes 10/30/24 16:59 [email or web address] Spontaneous unlabored Yes 10/30/24 16:59 [email or web address] respirations Mental status Awake,Calm 10/30/24 16:59 [email or web address] nausea No 10/30/24 16:59 [email or web address] Vomiting No 10/30/24 16:59 [email or web address] Anesthesia Postop Eval I: Fluid Summary Crystalloid volume administer 20 10/30/24 16:59 [email or web address] (ml) Colloids volume administered ( ml) Blood Product volume administered (ml) Total IV fluid infused 20 10/30/24 16:59 [email or web address] Anesthesia Postop Eval I: Summary Notes Anesthesia Complication No 10/30/24 16:59 [email or web address] Anesthesia Complication Comment: Post-operative progress note Anesthesia: Postop Eval II Evaluation Mental status: Awake and Calm Pain Level: 0 nausea: No Vomiting: No Complications Anesthesia Complication: No
[2024-11-05 17:07] LABS: Dopamine, 24Ur 276 ug/24 hr (0-510); Dopamine, UR 184 ug/L (Undefined); Epinephrine, 24Ur 5 ug/24 hr (0-20); Epinephrine, Ur 3 ug/L (Undefined); Norepinephrine, 24Ur 24 ug/24 hr (0-135); Norepinephrine, Ur 16 ug/L (Undefined); VMA, 24UR 3.2 mg/24 hr (0.0-7.5); VMA, UR 2.1 mg/L (Undefined)
[2024-11-06 09:08] LABS: Alpha-1-Globulins 0.1 g/dL (0.0-0.4); Alpha-2-Globulins 0.8 g/dL (0.4-1.0); Dopamine, Pl <30 pg/mL (0-48); Epinephrine, Pl <15 pg/mL (0-62); Gamma Globulin 1.2 g/dL (0.4-1.8); Gastrin, Serum 25 pg/mL (0-115); Immunoglobulin A 97 mg/dL (87-352); Immunoglobulin G 1181 mg/dL (586-1602); Immunoglobulin M 320 mg/dL (26-217); Norepinephrine, Pl 341 pg/mL (0-874); PROEL- TOTAL PROTEIN 7.1 g/dL (6.0-8.5)
== END 2024-10-30 16:05 | disposition home or self-care (01) ==
LOC: EN 13:19 → AC 13:21
PROVIDERS: Anesthesiology; PCP Family Medicine; Referring Provider Family Medicine; Visit Provider Internal Medicine Gastroenterology
PROC: 0DJ08ZZ Inspection of Upper Intestinal Tract, Via Natural or Artificial Opening Endoscopic (ICD-10-PCS; CPT 43235; principal; 2024-10-30 14:40)
DX: K29.50 Unspecified chronic gastritis without bleeding (principal); F50.00 Anorexia nervosa, unspecified; K21.9 Gastro-esophageal reflux disease without esophagitis; F32.A Depression, unspecified; Q61.2 Polycystic kidney, adult type; K76.89 Other specified diseases of liver; Z68.1 Body mass index [BMI] 19.9 or less, adult; Z88.0 Allergy status to penicillin; Z79.899 Other long term (current) drug therapy
CPT/HCPCS: 44361; 36415; 81025; 82384; 82784; 82941; 84165; 84443; 84585; 85652; 86140; 86334; 88305; 88342; A4216

== ENCOUNTER → 2024-11-14 | Outpatient (CLI) | payer OTHER, SELFPAY ==
--- NOTE | 2024-11-14 15:02 | CT_ITS ---
PROCEDURE: ABDOMEN/PELVIS WITH CONTRAST 11/14/2024 REASON FOR EXAM: N/V AND ABD PAIN TECHNIQUE: Abdomen and pelvis CT with intravenous contrast. Coronal and Sagittal reconstruction series were provided. PATIENT PREPARATION: Per protocol ORAL CONTRAST TYPE: Oral contrast. CONTRAST: Isovue-300 VOLUME: 100 mL One or more dose reduction techniques were used (e.g., Automated exposure control, adjustment of the mA and/or kV according to patient size, use of iterative reconstruction technique. RADIATION DOSE SUMMARY: CTDlvol: 9.5 mGy DLP: 277.51 mGycm COMPARISON: None FINDINGS: Lung bases: Pectus excavatum deformity. Liver: Normal size. No mass. Gallbladder: Unremarkable Spleen: Normal size. Pancreas: Normal size without evidence of mass surrounding inflammation or ductal dilation. Adrenals: Unremarkable Kidneys: Small bilateral renal cysts more prominent on the left side. Bladder: Distended urinary bladder. Reproductive Organs: There is a 4.4 cm 3.2 cm cyst in the right ovary. Prominence of the endometrial stripe. Pelvic sonographic correlation recommended. Bowel: Large amount of fecal material is seen in the colon. Appendix: Unremarkable Lymph nodes: Unremarkable. Vasculature: The abdominal aorta and IVC are normal. Peritoneum / Retroperitoneum: Unremarkable Bones: Unremarkable CT/Abdomen/Pelvis WITH Contrast IMPRESSION: Multiple small bilateral renal cysts. Right ovarian cyst in thickening of the endometrium as described. Sonographic correlation recommended. Distended urinary bladder. Large amount of fecal material is seen in the colon. Reading Location: [place] [address]
== END | disposition home or self-care (01) ==
LOC: CT 14:46
PROVIDERS: PCP Family Medicine; Referring Provider Internal Medicine Gastroenterology; Visit Provider Internal Medicine Gastroenterology
DX: R11.2 Nausea with vomiting, unspecified (principal); R10.9 Unspecified abdominal pain
CPT/HCPCS: 74177; Q9967; A4216

== ENCOUNTER → 2024-11-21 | Outpatient (CLI) | payer OTHER, SELFPAY ==
--- NOTE | 2024-11-21 17:56 | US_ITS ---
PROCEDURE: KIDNEY AND BLADDER 11/21/2024 REASON FOR EXAM: POLYCYSTIC TECHNIQUE: Bilateral renal ultrasound. FINDINGS: Kidneys: Normal renal sizes, parenchymal thicknesses, and echotextures. [place]: None Cysts or Masses: Innumerable anechoic masses of both kidneys of varying sizes with the largest measuring 1.5 cm within both kidneys consistent with cysts. Other: RIGHT Kidney Size: 11.5 x 6.2 x 4.0 Volume: mL Parenchymal Thickness: (>14mm is normal) Cortical Thickness (if discernible): 1.4 (>6mm is normal) LEFT Kidney Size: 10.9 x 4.5 x 4.5 Volume: mL Parenchymal Thickness: (>14mm is normal) Cortical Thickness (if discernible): 1.8 (>6mm is normal) US/Kidney and Bladder IMPRESSION: Innumerable bilateral renal cysts. No hydronephrosis to suggest obstruction. Reading Location: [id number]
== END | disposition home or self-care (01) ==
LOC: US 17:55
PROVIDERS: PCP Family Medicine; Referring Provider Internal Medicine Nephrology; Visit Provider Internal Medicine Nephrology
DX: Q61.2 Polycystic kidney, adult type (principal)
CPT/HCPCS: 76770

== ENCOUNTER → 2024-11-26 | Outpatient (CLI) | payer OTHER, SELFPAY ==
[2024-11-26 16:46] LABS: Microalbumin,Random Urine < 12.0 mg/L (NO RANGE EST.); Microalbumin:Creatinine Ratio UNABLE TO CALCULATE mg/g CRE
[2024-11-26 16:49] LABS: ALB/GLOB Ratio 1.7 RATIO (0.9-2.4); AST(SGOT) 17 U/L (<=31); Alanine Aminotransfer ALT/SGPT 11 U/L (<=34); Albumin, Serum 4.8 g/dL (3.5-5.0); Alkaline Phosphatase 53 U/L (35-104); Anion Gap 12 (5-15); BUN 8 mg/dL (4-19); Calcium,Total 9.7 mg/dL (7.6-11.0); Carbon Dioxide 24.1 mmol/L (21.0-32.0); Chloride 101 mmol/L (98-108); Creatinine, Serum 0.68 mg/dL (0.70-1.20); EST Glomerular Filtration Rate 127 (>60); Globulin 2.9 g/dL (2.2-4.2); Glucose 89 mg/dL (70-99); Potassium 3.9 mmol/L (3.3-5.1); Protein, Total 7.7 g/dL (5.9-8.4); Sodium Level 137 mmol/L (133-145); Total Bilirubin 0.39 mg/dL (0.00-1.30)
== END | disposition home or self-care (01) ==
LOC: LAB 15:08
PROVIDERS: PCP Family Medicine; Referring Provider Internal Medicine Nephrology; Visit Provider Internal Medicine Nephrology
DX: Q61.2 Polycystic kidney, adult type (principal)
CPT/HCPCS: 36415; 80053; 82043; 82570

== ENCOUNTER → 2024-11-26 | Outpatient (CLI) | payer OTHER, SELFPAY ==
--- NOTE | 2024-11-26 14:23 | US_ITS ---
PROCEDURE: PELVIC W/ TRANSVAGINAL 11/26/2024 REASON FOR EXAM: OVARIAN CYST SEEN ON CT 11/14 TECHNIQUE: Transabdominal and transvaginal pelvic ultrasound COMPARISON: June 25, 2024 FINDINGS: The uterus measures 6.8 x 5.4 x 3.7 cm. There is no uterine fibroid or mass. The endometrium measures 0.37 cm. The right ovary measures 4.6 x 2.5 x 2.0 cm, volume = 12.31 cc. The left ovary measures 3.8 x 2.5 x 2.4 cm, volume = 12.02 cc. There are greater than 10 subcentimeter follicles present in the right and left ovary. There is no adnexal mass. There is a trace amount of fluid in the cul-de-sac, likely physiologic. US/Pelvic w/ Transvaginal IMPRESSION: The endometrium measures 0.37 cm. The right and left ovary meet the criteria for polycystic ovary syndrome. There is no significant interval change. Reading Location: [facility]
== END | disposition home or self-care (01) ==
LOC: US 14:21
PROVIDERS: PCP Family Medicine; Referring Provider Internal Medicine Gastroenterology; Visit Provider Internal Medicine Gastroenterology
DX: N83.201 Unspecified ovarian cyst, right side (principal); N83.202 Unspecified ovarian cyst, left side
CPT/HCPCS: 76830; 76856

== ENCOUNTER → 2025-01-07 | Outpatient (CLI) | payer OTHER, SELFPAY | END | disposition home or self-care (01) | PROVIDERS: PCP Family Medicine; Referring Provider Internal Medicine Cardiovascular Disease; Visit Provider Internal Medicine Cardiovascular Disease | DX: R00.0 Tachycardia, unspecified (principal) | CPT/HCPCS: 93225; 93226 ==

== ENCOUNTER → 2025-02-26 | Outpatient (CLI) | payer OTHER, SELFPAY ==
--- NOTE | 2025-02-26 13:53 | ECHOD_ITS ---
Reason For Study Reason For Study: Arrhythmia Procedure This was a 2D Doppler, Color Flow transthoracic echocardiogram. Exam performed in department. Left Ventricle Normal LV size. The left ventricular ejection fraction is 60 %. No regional wall motion abnormalities noted. Right Ventricle Normal RV size. Normal systolic function. Atria Normal left atrium. Normal right atrium. Mitral Valve Equivocal mitral valve prolapse. Trivial mitral valve insufficiency. Tricuspid Valve Normal tricuspid valve. Aortic Valve Normal aortic valve. Trisinus/trileaflet aortic valve. Pulmonic Valve Normal pulmonic valve. Great Vessels Normal aortic root. The pulmonary artery is normal size. Inferior vena cava collapse with respiration. Pericardium/Pleural No pericardial effusion. MMode/2D Measurements & Calculations LVIDd: 4.4 cm IVSd: 0.66 cm Ao root diam: 2.3 cm LVIDs: 3.1 cm LVPWd: 0.72 cm RVDd: 2.7 cm FS: 29.6 % LAV(MOD-bp): 17.4 ml LVAd ap4: 28.7 cm2 SV(MOD-sp4): 54.6 ml LAV(MOD-bp) Indexed: 11.8 ml/m2 LVLd ap4: 8.3 cm SI(MOD-sp4): 37.1 ml/m2 LAV(MOD-sp2): 17.6 ml EDV(MOD-sp4): 82.9 ml LAV(MOD-sp4): 13.8 ml EDV(sp4-el): 84.3 ml LVAs ap4: 14.5 cm2 LVLs ap4: 6.2 cm ESV(MOD-sp4): 28.3 ml ESV(sp4-el): 29.0 ml EF(MOD-sp4): 65.9 % EF(sp4-el): 65.6 % SV(sp4-el): 55.4 ml LA A4 area: 9.0 cm2 LA dimension(2D): 3.0 cm RA A4 area: 7.6 cm2 TAPSE: 1.9 cm Time Measurements MV dec time: 0.27 sec Doppler Measurements & Calculations MV E max dioni: 77.4 cm/sec Lat Peak E' Dioni: 17.0 cm/sec Med Peak E' Dioni: 24.5 cm/sec MV A max doini: 49.1 cm/sec E/E' lat: 4.6 E/E' med: 3.2 MV E/A: 1.6 MV P1/2t max dioni: 77.4 cm/sec Ao V2 max: 150.1 cm/sec LV V1 max: 114.4 cm/sec MV P1/2t: 86.5 msec Ao max P.0 mmHg LV V1 max P.2 mmHg Ao V2 mean: 106.9 cm/sec LV V1 mean P.1 mmHg MV dec slope: 261.9 cm/sec2 Ao mean P.9 mmHg LV V1 mean: 85.6 cm/sec MVA(P1/2t): 2.5 cm2 Ao V2 VTI: 31.2 cm LV V1 VTI: 24.4 cm AV (velocity ratio): 0.78 PA V2 max: 99.8 cm/sec PI end-d dioni: 103.5 cm/sec TR max dioni: 190.7 cm/sec TR max P.5 mmHg ECHO/Echo Complete Interpretation Summary Normal LV size. The left ventricular ejection fraction is 60 %. Equivocal mitral valve prolapse. Trivial mitral valve insufficiency. Ordering Physician: Duglas Lopez Referring Physician: Rafaela Escobar Performed By: Nicolasa Brush RVT, RDCS and Student
== END | disposition home or self-care (01) ==
LOC: CVS 13:52
PROVIDERS: PCP Family Medicine; Referring Provider Internal Medicine Cardiovascular Disease; Visit Provider Internal Medicine Cardiovascular Disease
DX: R00.0 Tachycardia, unspecified (principal)
CPT/HCPCS: 93306